=== PATIENT | male | born 1985 | race Two or more races ===

== ENCOUNTER 2023-01-24 02:47 | Emergency (ER) | payer OTHER ==
[~2023-01-24] VITALS: Ht 167.6 cm; Wt 76.8 kg
[~2023-01-24 02:47] MED LIST: AMOX500C2 PO
[2023-01-24 03:19] VITALS: BP 140/77; PULSE 77; RESP 18; TEMP 98.3; O2SAT 98
[2023-01-24] MEDS ORDERED: INDO50CA82 PO (03:24)
[2023-01-24] MEDS ORDERED: PRED30TA4 PO (03:24)
[2023-01-24] MEDS ORDERED: KETOROLAC TROMETH 60MG/2ML VIAL IM ONE (03:30)
[2023-01-24] MEDS ORDERED: DexAMETHasone SOD PHOS 10MG/1ML VIAL INJ IM ONE (03:30)
== END 2023-01-24 04:01 | disposition home or self-care (01) ==
LOC: ER 02:47
DX: M10.9 Gout, unspecified (principal); Z79.899 Other long term (current) drug therapy; Z90.89 Acquired absence of other organs
CPT/HCPCS: 96372; 99284; J1100; J1885

== ENCOUNTER 2023-04-01 11:02 | Emergency (ER) | payer OTHER ==
[~2023-04-01] VITALS: Ht 167.6 cm; Wt 82.0 kg
[~2023-04-01 11:02] MED LIST changes: +INDO50CA82 PO; +PRED30TA4 PO
[2023-04-01 12:23] VITALS: BP 158/94; PULSE 73; RESP 18; TEMP 98; O2SAT 97
[2023-04-01] MEDS ORDERED: KETOROLAC TROMETH 60MG/2ML VIAL IM ONE (12:30)
[2023-04-01] MEDS ORDERED: COLC1CAP PO (12:43)
[2023-04-01] MEDS ORDERED: INDO50CA82 PO (12:43)
== END 2023-04-01 12:58 | disposition home or self-care (01) ==
LOC: ER 11:02
DX: M10.071 Idiopathic gout, right ankle and foot (principal); Z90.89 Acquired absence of other organs
CPT/HCPCS: 96372; 99283; J1885

== ENCOUNTER 2023-10-12 16:37 | Emergency (ER) | payer OTHER ==
[~2023-10-12] VITALS: Ht 162.6 cm; Wt 81.7 kg
[~2023-10-12 16:37] MED LIST changes: +COLC1CAP PO
[2023-10-12 17:17] VITALS: BP 132/82; PULSE 81; RESP 18; TEMP 97.9; O2SAT 97
[2023-10-12] MEDS: KETOROLAC TROMETH 60MG/2ML VIAL IM ONE (17:27)
== END 2023-10-12 17:42 | disposition home or self-care (01) ==
LOC: ER 16:37
DX: M10.9 Gout, unspecified (principal)
CPT/HCPCS: 96372; 99283; J1885

== ENCOUNTER 2024-11-16 23:29 | Emergency (ER) | payer OTHER ==
[~2024-11-16] VITALS: Ht 160 cm; Wt 85.0 kg
--- NOTE | 2024-11-17 00:21 | ED.PDOC ---
Back pain HPI HPI Comments Pt presents to the ER with C/O of lft foot pain. Pt reports PMH- gout, pt states he is having a "gout flare up." Pt states he took Ibuprofen x6 hours ago with no relief. Pt noted have to swelling to lft foot, CSM intact. Chief Complaint: Lower Extremity Time Seen by MD: 23:34 Primary Care Provider: UNKNOWN Reviewed Notes: Nurses Notes, Medications, Allergies Allergies: Coded Allergies: No Known Drug Allergy (Verified Allergy, Unknown, 04/19/22) Home Meds Active Scripts Colchicine (Colchicine) 0.6 Mg Cap, 0.6 MG PO BID, #30 CAP Prov:ALEN SHEPHERD [facility] 11/17/24 Prednisolone Sodium Phosphate (Prednisolone Sodium Phosp) 30 Mg Tab, 30 MG PO DAILY for 5 Days, #5 TAB 0 Refills Prov:ALEN SHEPHERD [facility] 11/17/24 Colchicine (Colchicine) 0.6 Mg Cap, 0.6 MG PO BID, #20 CAP Prov:ANAND MCCLELLAN 10/12/23 Indomethacin (Indomethacin) 50 Mg Cap, 1 CAP PO TID, #30 CAP Prov:ANAND MCCLELLAN 10/12/23 Indomethacin (Indomethacin) 50 Mg Cap, 1 CAP PO TID, #30 CAP Prov:ANAND MCCLELLAN 04/01/23 Indomethacin (Indomethacin) 50 Mg Cap, 1 CAP PO TID PRN, #30 CAP 0 Refills Prov:ОЛЬГА MORTENSEN 01/24/23 Amoxicillin Trihydrate (Amoxicillin) 500 Mg Cap, 2 CAP PO BID for 5 Days, #10 CAP 0 Refills Prov:PETR CHAVEZ [facility] 04/19/22 Information Source: Patient Past Medical History PAST MEDICAL HISTORY: Gout Surgical History: Tonsillectomy Family History Family History: Reviewed,noncontributory to illness Social History Smoker: Non-Smoker Alcohol: Denies ETOH Use Drugs: Denies Drug Use Lives In: Home Constitutional: denies: chills, diaphoresis, fatigue, fever, malaise, sweats, weakness, others EENTM: denies: blurred vision, double vision, ear bleeding, ear discharge, ear drainage, ear pain, ear ringing, eye pain, eye redness, hearing loss, mouth pain, mouth swelling, nasal discharge, nose bleeding, nose congestion, nose pain, photophobia, tearing, throat pain, throat swelling, voice changes, others Respiratory: denies: cough, hemoptysis, orthopnea, SOB at rest, shortness of breath, SOB with excertion, stridor, wheezing, others Cardiovascular: denies: chest pain, dizzy spells, diaphoresis, Dyspnea on exertion, edema, irregular heart beat, left arm pain, lightheadedness, palp itations, PND, syncope, others Gastrointestinal: denies: abdomen distended, abdominal pain, blood streaked bowels, constipated, diarrhea, dysphagia, difficulty swallowing, hematemesis, melena, nausea, poor appetite, poor fluid intake, rectal bleeding, rectal pain, vomiting, others Genitourinary: denies: burning, dysuria, flank pain, frequency, hematuria, incontinence, penile discharge, penile sore, pain, testicle pain, testicle swelling, urgency, others Neurological: denies: dizziness, fainting, headache, left sided numbness, left sided weakness, numbness, paresthesia, pre-existing deficit, right sided numbness, right sided weakness, seizure, speech problems, tingling, tremors, weakness, others Musculoskeletal: reports: gout, joint pain, joint swelling; denies: back pain, muscle pain, muscle stiffness, neck pain, others Integumetry: denies: bruises, change in color, change in hair/nails, dryness, laceration, lesions, lumps, rash, wounds, others Hematologic/Lymphatic: denies: anemia, blood clots, easy bleeding, easy bruising, swollen glands, others Endocrine: denies: excessive hunger, excessive sweating, excessive thirst, excessive urination, flushing, intolerance to cold, intolerance to heat, unexplained weight gain, unexplained weight loss, others Psychiatric: denies: anxiety, bipolar disorder, depression, hopeless, panic disorder, schizophrenia, sleepless, suicidal, others Physical Exam General Appearance: No Apparent Distress, Normal HEENT: Pharynx Normal Neck: Full Range of Motion, Non-Tender Respiratory: Lungs Clear, No Respiratory Distress, Normal Breath Sounds Cardiovascular: No Edema, No JVD, No Murmur, No Gallop, Normal Peripheral Pulses, Regular Rate/Rhythm Breast Exam: Deferred Gastrointestinal: No Organomegaly, Non Tender, No Pulsatile Mass, Normal Bowel Sounds, Soft Genitalia: Deferred Pelvic: Deferred Rectal: Deferred Extremities: Normal capillary refill, Normal inspection, Normal range of mo tion, Non-tender, No pedal edema Musculoskeletal : Location: Left Extremity Location: Foot (TRACE EDEMA WITH MODERATE TENDERNESS LEFT FOOT DORSUM ASPECT AND PLANTAR ASPECT NO NOTED ABRASIONS LESIONS OR LACERATIONS TRANSFERRED TO THE MOTION INTACT POSITIVE PEDAL PULSE) Apperance: Normal Neurologic: Alert, No Motor Deficits, Normal Affect, Normal Mood, No Sensory Deficits Cerebellar Function: Normal Reflexes: Normal Skin: Dry, Normal Color, Warm Lymphatic: No Adenopathy Was a procedure done? Was a procedure done?: No Back Pain Differential Dx Differential Diagnosis: Fracture, Musculoskeletal Pain X-Ray, Labs, Meds, VS Vital Signs Date Time Temp Pulse Resp B/P (MAP) Pulse Ox O2 Delivery O2 Flow Rate FiO2 11/17/24 00:15 98.3 85 18 152/100 (117) 99 98.3 Time of 1ST Reevaluation: 00:20 Reevaluation 1ST: Unchanged Patient Education/Counseling: Diagnosis, Treatment, Prognosis, Need For Follow Up Family Education/Counseling: No Family Present SEPSIS Sepsis Screen Vital Signs Date Time Temp Pulse Resp B/P (MAP) Pulse Ox O2 Delivery O2 Flow Rate FiO2 11/17/24 00:15 98.3 85 18 152/100 (117) 99 98.3 Departure 1 Departure Time of Disposition: 00:23 Impression: Primary Impression: Acute gout of left foot Qualified Codes: M10.9 - Gout, unspecified Disposition: 04 INTERMEDIATE CARE FACILITY Condition: Stable e-Prescriptions Colchicine (Colchicine) 0.6 Mg Cap 0.6 MG PO BID, #30 CAP Prov: ALEN SHEPHERD 11/17/24 Prednisolone Sodium Phosphate (Prednisolone Sodium Phosp) 30 Mg Tab 30 MG PO DAILY for 5 Days, #5 TAB 0 Refills Prov: ALEN SHEPHERD 11/17/24 Discharged With: Self Critical Care Note Critical Care Time?: No Stability Stability form required: ALEN Casper Nov 17, 2024 00:21
[2024-11-17] MEDS ORDERED: COLC1CAP PO (00:23)
[2024-11-17] MEDS ORDERED: PRED30TA4 PO (00:23)
[2024-11-17 02:22] VITALS: BP 136/89; PULSE 71; RESP 20; TEMP 98; O2SAT 99
[2024-11-17] MEDS: DexAMETHasone SOD PHOS 10MG/1ML VIAL INJ IM ONE (03:45)
[2024-11-17] MEDS: KETOROLAC TROMETH 60MG/2ML VIAL IM ONE (03:45)
[2024-11-18] MEDS ORDERED: COLC1CAP PO (18:27)
== END 2024-11-17 03:54 | disposition home or self-care (01) ==
LOC: ER 23:29
DX: M10.9 Gout, unspecified (principal); Z90.89 Acquired absence of other organs; Z79.899 Other long term (current) drug therapy
CPT/HCPCS: 96372; 99284; J1100; J1885